=== PATIENT | male | born 2000 | race Two or more races ===

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

== ENCOUNTER 2022-08-13 01:15 | Emergency (ER) | payer MEDICAID, OTHER ==
[~2022-08-13] VITALS: Ht 170.2 cm; Wt 70.0 kg
[2022-08-13] MEDS ORDERED: NALO4SPR BOTHNSTRLS (02:20)
[2022-08-13 02:30] VITALS: BP 150/86
== END 2022-08-13 02:30 | disposition home or self-care (01) ==
LOC: ER 01:15
DX: T40.2X1A Poisoning by other opioids, accidental (unintentional), initial encounter (principal); F11.988 Opioid use, unspecified with other opioid-induced disorder; R53.1 Weakness; R41.82 Altered mental status, unspecified; R03.0 Elevated blood-pressure reading, without diagnosis of hypertension; Y92.018 Other place in single-family (private) house as the place of occurrence of the external cause
CPT/HCPCS: 99283